=== PATIENT | female | born 1995 | race Caucasian/White ===

== ENCOUNTER 2018-04-14 06:37 | Inpatient (IN) | payer BC ==
[~2018-04-14] VITALS: Ht 160 cm; Wt 99.3 kg
[2018-04-14 06:42] VITALS: BP 124/79
[2018-04-14] MEDS ORDERED: METFORMIN HCL500 MG PO (06:46)
[2018-04-14 07:03] LABS: ABSOLUTE BASOPHILS 0.1 thou/uL (0.0-0.2); ABSOLUTE EOSINOPHILS 0.1 thou/uL (0.0-0.7); ABSOLUTE LYMPHOCYTES 1.6 thou/uL (0.8-5.3); ABSOLUTE MONOCYTES 0.6 thou/uL (0.0-1.2); ABSOLUTE NEUTROPHILS 9.4 thou/uL (1.6-8.1); BASOPHILS 1.2 %; EOSINOPHILS 0.8 %; HEMATOCRIT 39.9 % (37.0-47.0); HEMOGLOBIN 13.4 gm/dL (12.0-15.0); LYMPHOCYTES 13.5 %; MCH 28.4 pg (26.0-34.0); MCHC 33.6 g/dL (28.0-37.0); MCV 84.4 fL (80.0-100.0); MONOCYTES 5.4 %; MPV 8.2 fl. (7.2-11.1); NUCLEATED RBCS 0 /100WBC; POLYS 79.1 %; RBC 4.73 mil/uL (4.20-5.00); RDW-CV 15.3 % (10.5-14.5); WBC 11.9 thou/uL (4.0-11.0)
[2018-04-14 07:04] LABS: URINE BLOOD NEGATIVE (Negative); URINE CLARITY CLEAR; URINE COLOR DARK YELLOW; URINE GLUCOSE-RANDOM NEGATIVE (Negative); URINE KETONES TRACE (Negative); URINE NITRITE-REFLEX NEGATIVE (Negative); URINE PROTEIN TRACE (Negative)
[2018-04-14 07:08] LABS: ICTOTEST (BILI CONFIRMATORY) Positive (Negative); URINE BILIRUBIN 1+ (Negative); URINE LEUKOCYTES-REFLEX 2+ (Negative)
[2018-04-14 07:10] LABS: SQUAMOUS 4-10 Moderate /LPF (0-3); URINE WBC-REFLEX 0-5 Rare /HPF (0-5)
[2018-04-14 07:11] LABS: BACTERIA-REFLEX 1-9 Few /HPF (None Seen); CASTS None Seen /LPF (None Seen); CRYSTALS None Seen /LPF (None Seen); URINE RBC None Seen /HPF (0-2)
[2018-04-14 07:13] LABS: ALBUMIN 4.7 g/dL (3.4-5.0); ALKALINE PHOSPHATASE 85 U/L (46-116); ANION GAP 9 mmol/L (7-16); BUN 14 mg/dL (7-18); CHLORIDE 102 mmol/L (98-107); CO2 30 mmol/L (21-32); GLUCOSE 109 mg/dL (70-99); POTASSIUM 4.1 mmol/L (3.5-5.1); SGOT 163 U/L (15-37); SGPT 230 U/L (30-65); SODIUM 141 mmol/L (136-145); TOTAL BILIRUBIN 0.8 mg/dL (<0.1-1.0); TOTAL PROTEIN 7.7 g/dL (6.4-8.2)
[2018-04-14 07:16] LABS: PLATELET COUNT* 1343 thou/uL (150-400)
[2018-04-14 07:46] LABS: LIPASE > 30000 U/L (73-393)
[2018-04-14 07:59] LABS: CALCIUM 10.1 mg/dL (8.5-10.1)
[2018-04-14 08:09] LABS: PLATELET ESTIMATE INCREASED
[2018-04-14 08:11] LABS: GIANT PLATELETS FEW
[2018-04-14 08:12] LABS: ANISOCYTOSIS Occasional; LARGE PLATELETS FEW
[2018-04-14 09:35] LABS: % SATURATION 24 % (20-39); IRON 80 ug/dL (50-175)
[2018-04-14 10:35] VITALS: BP 106/64
[2018-04-14 11:11] VITALS: BP 100/68
[2018-04-14 15:00] VITALS: BP 103/62
--- NOTE | 2018-04-14 15:18 | NUR ---
PATIENT ADMITTED TO ROOM 317 VIA CART FROM ER AT 1045. PATIENT PLACED ON VEGETABLE TIER, TRACING NSR. PATIENT'S ADMISSION PROCESS COMPLETED. IV FLUIDS STARTED. PATIENT NPO. VITALS STABLE. ORIENTED TO ROOM AND ENVIRONMENT. CALL LIGHT WITHIN REACH. WILL CONTINUE WITH PLAN OF CARE.
[2018-04-14] MEDS ORDERED: ACIDOPHILUS PR1 EAC1 PO (15:57)
[2018-04-14] MEDS ORDERED: [UNRECOGNIZED DRUG - OTHER] PO (15:58)
[2018-04-14] MEDS ORDERED: ONE DAILY WOME1 EAC3 PO (15:59)
[2018-04-14] MEDS ORDERED: FISH OIL 1,0001 EAC1 PO (15:59)
[2018-04-14] MEDS ORDERED: VITAMIN D5000 UNIT PO (15:59)
--- NOTE | 2018-04-14 18:51 | NUR ---
PATIENT HAS REMAINED A/O X 4 SINCE ADMIT. 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 IV FLUIDS CONTINUE TO INFUSE. MEDICATED FOR PAIN X 2 WITH PARTIAL RELIEF. UP AD SMITA IN ROOM. REMAINS NPO. SIGNIFICANT OTHER AT BEDSIDE. GI AND HEME CONSULT PENDING. HOURLY ROUNDING COMPLETED. CALL LIGHT WITHIN REACH. WILL CONTINUE WITH PLAN OF CARE.
[2018-04-15 00:37] VITALS: BP 99/57
[2018-04-15 04:30] VITALS: BP 110/57
[2018-04-15 04:31] LABS: HEMATOCRIT 34.2 % (37.0-47.0); HEMOGLOBIN 11.6 gm/dL (12.0-15.0); MCH 28.9 pg (26.0-34.0); MCHC 33.9 g/dL (28.0-37.0); MCV 85.2 fL (80.0-100.0); MPV 7.7 fl. (7.2-11.1); RBC 4.01 mil/uL (4.20-5.00); WBC 9.1 thou/uL (4.0-11.0)
[2018-04-15 04:39] LABS: INR 1.2; PROTIME 12.7 Seconds (9.20-11.50)
[2018-04-15 04:45] LABS: ALBUMIN 3.2 g/dL (3.4-5.0); CALCIUM 7.9 mg/dL (8.5-10.1); CREATININE 0.7 mg/dL (0.6-1.3); MAGNESIUM 1.8 mg/dL (1.8-2.4); POTASSIUM 3.5 mmol/L (3.5-5.1); TOTAL BILIRUBIN 0.6 mg/dL (<0.1-1.0); TOTAL PROTEIN 5.4 g/dL (6.4-8.2)
--- NOTE | 2018-04-15 06:17 | NUR ---
PATIENT SLEPT MOST OF THE NIGHT. IV FLUIDS ARE INFUSING AT 100 ML/HR. PATIENT DID NOT REQUEST ANY PAIN OR NAUSEA MEDICINE. PATIENT REMAINS NPO PER ORDERS. WILL CONTINUE TO MONITOR.
[2018-04-15 08:00] VITALS: BP 108/56
[2018-04-15 12:37] VITALS: BP 118/70
--- NOTE | 2018-04-15 16:44 | NUR ---
SHIFT NOTE - NOTIFIED OF CCK-PIPIDA RESULT. ORDERS REC FOR LOW FAT DIET. PT UNDERSTOOD. FAMILY PRESENT AT BEDSIDE. WILL CONTINUE TO MONITOR.
[2018-04-15 16:53] VITALS: BP 107/67
[2018-04-15 22:08] LABS: IgG 635 mg/dL (700-1600)
[2018-04-16 00:24] VITALS: BP 106/60
[2018-04-16 03:33] VITALS: BP 103/64
[2018-04-16 04:16] LABS: ALBUMIN 3.5 g/dL (3.4-5.0); ALKALINE PHOSPHATASE 64 U/L (46-116); ANION GAP 9 mmol/L (7-16); BUN 7 mg/dL (7-18); CALCIUM 8.7 mg/dL (8.5-10.1); CHLORIDE 105 mmol/L (98-107); CO2 26 mmol/L (21-32); CREATININE 0.7 mg/dL (0.6-1.3); GLUCOSE 89 mg/dL (70-99); MAGNESIUM 1.9 mg/dL (1.8-2.4); POTASSIUM 3.7 mmol/L (3.5-5.1); SGOT 22 U/L (15-37); SGPT 86 U/L (30-65); SODIUM 140 mmol/L (136-145); TOTAL BILIRUBIN 0.4 mg/dL (<0.1-1.0); TOTAL PROTEIN 6.1 g/dL (6.4-8.2)
[2018-04-16 04:31] LABS: CHOLESTEROL 85 mg/dL (<200); HDL CHOLESTEROL 30 mg/dL (>40); LDL CHOLESTEROL 41 mg/dL (<100); TC:HDL 2.8 Ratio (Not establshd); TRIGLYCERIDE 73 mg/dL (<150); VLDL 15 mg/dL (<40)
[2018-04-16 04:33] LABS: SERUM ASSESSMENT Clear
--- NOTE | 2018-04-16 06:37 | NUR ---
PATIENT SLEPT WELL DURING THIS SHIFT. PT DENIES PAIN/NAUSEA. PT HAS SALINE LOCK IN RT AC. PT IS UP AD SMITA. PT DENIES NEEDS ON THIS SHIFT. FREQUENTLY USED ITEMS AND CALL LIGHT WITHIN REACH. SIDERAILS UPX2. SIGNIFICANT OTHER AT BEDSIDE. WILL CONTINUE TO MONITOR.
[2018-04-16 08:00] VITALS: BP 99/49
[2018-04-16] MEDS ORDERED: ASPIR 8181 M1 PO (08:56)
[2018-04-16 09:04] LABS: ABSOLUTE BASOPHILS 0.1 thou/uL (0.0-0.2); ABSOLUTE EOSINOPHILS 0.1 thou/uL (0.0-0.7); ABSOLUTE LYMPHOCYTES 1.4 thou/uL (0.8-5.3); ABSOLUTE MONOCYTES 0.5 thou/uL (0.0-1.2); BASOPHILS 0.7 %; HEMATOCRIT 34.5 % (37.0-47.0); HEMOGLOBIN 11.9 gm/dL (12.0-15.0); LYMPHOCYTES 17.5 %; MCH 29.6 pg (26.0-34.0); MCHC 34.4 g/dL (28.0-37.0); MCV 85.9 fL (80.0-100.0); MPV 8.4 fl. (7.2-11.1); NUCLEATED RBCS 0 /100WBC; PLATELET COUNT* 845 thou/uL (150-400); POLYS 74.8 %; RBC 4.01 mil/uL (4.20-5.00); RDW-CV 14.9 % (10.5-14.5); WBC 8.1 thou/uL (4.0-11.0)
[2018-04-16 09:09] LABS: HEPATITIS B SURFACE AG Negative (Negative)
--- NOTE | 2018-04-16 09:11 | CON ---
[address] [address] CONSULTATION Name: STUART CRUZ Room: [address]#: [id number] Admission: 04/14/18 Attend Phys: Arnel Ring MD Discharge: Date of : 95 Report #: [id number] THIS REPORT FOR: //name// CC: Sunni Ring REASON FOR CONSULTATION: Thrombocythemia. SUBJECTIVE: A 22-year-old female who has been admitted to the hospital because of epigastric pain, which was nonradiating, associated with nausea, but no vomiting, no chills. The patient denies any previous blood disorders or family history of any blood disorders. She denies any lightheadedness, headaches, numbness or tingling sensation. She denies any itching. REVIEW OF SYSTEMS: All systems were reviewed. It was negative except the above. PAST MEDICAL HISTORY: None. MEDICATIONS: Per admission list. ALLERGIES: No known allergies. SOCIAL HISTORY: No smoking, no alcohol abuse, no drug abuse. FAMILY HISTORY: Per records, breast and lung cancer. PAST SURGICAL HISTORY: None. PHYSICAL EXAMINATION: VITAL SIGNS: Today, temperature 36.8, pulse 69, respirations 16, blood pressure is 108/56, SpO2 is 98% on room air. GENERAL: The patient was lying in bed. She was not in acute distress. LUNGS: Clear to auscultations bilaterally. HEART: Regular rate and rhythm. S1, S2 within normal limits. ABDOMEN: Soft, nontender, nondistended, bowel sounds positive. EXTREMITIES: No edema, no cyanosis, no clubbing. LABORATORY DATA: WBC 9.1, hemoglobin 11.4, platelet count dropped from 1343 to 819. Creatinine is 0.7. Calcium is 7.8. Ferritin 95, TIBC is 330. AST 42, ALT 120. LDH is 529. CRP less than 2. IMAGING: CT scan of the abdomen showed marked splenomegaly, other nonspecific. By ultrasound showed normal hepatic Doppler examination. ASSESSMENT AND PLAN: A 22-year-old [place] [address] CONSULTATION Name: STUART CRUZ Room: [address] IN [facility]#: [id number] Admission: 04/14/18 Attend Phys: Arnel Ring MD Discharge: Date of : 95 Report #: [id number] of marked thrombocytosis. Her ESR, CRP came back negative, which are inflammatory markers. Her iron study is within normal range. However, she had splenomegaly on imaging. I would like to rule out any possibility of myeloproliferative disorders. We will check JAK2 mutation, MPL, BCR-ABL, also hemoglobin electrophoresis. We will obtain peripheral blood smear. She has elevation of her LDH also. We will follow up in the clinic with the results of her workup. <ELECTRONICALLY SIGNED> By: Becca Del Real MD 04/16/18 0911 [id number] paul Jhaveri
[2018-04-16 09:13] VITALS: BP 99/49
--- NOTE | 2018-04-16 10:28 | NUR ---
PATIENT TOLERATING LOW FAT DIET. OK TO DISCHARG, SPOKE WITH CONSULTANTS AND APPT MADE FOR HEMOC. IV DC'D. PATIENT AMBULATED OUT WITH SO AND NURSING STAFF. VERBALIZES UNDERSTANDING OF PAPERWORK AND SCRIPT.
[2018-04-17 15:12] LABS: HGB SOLUBILITY Negative (Negative)
[2018-04-18 18:07] LABS: ANA INTERPRETATION Negative (())
== END 2018-04-16 10:00 | disposition home or self-care (01) | DRG 445 ==
LOC: M.ERS 06:37 → M.3W 09:00 → M.TBA-ER 09:00 → M.3W 10:38
PROVIDERS: Emergency Medicine; Internal Medicine; Internal Medicine Gastroenterology; ADMIT Internal Medicine
DX: K82.8 Other specified diseases of gallbladder (principal); R65.10 Systemic inflammatory response syndrome (SIRS) of non-infectious origin without acute organ dysfunction; D47.3 Essential (hemorrhagic) thrombocythemia; K75.9 Inflammatory liver disease, unspecified; R16.1 Splenomegaly, not elsewhere classified; E28.2 Polycystic ovarian syndrome; E66.9 Obesity, unspecified; Z68.38 Body mass index [BMI] 38.0-38.9, adult; Z80.1 Family history of malignant neoplasm of trachea, bronchus and lung; Z80.3 Family history of malignant neoplasm of breast

== ENCOUNTER → 2018-04-23 | Outpatient (CLI) | payer BC ==
[~2018-04-23] MED LIST: ACIDOPHILUS PR1 EAC1 PO; ASPIR 8181 M1 PO; FISH OIL 1,0001 EAC1 PO; METFORMIN HCL500 MG PO; ONE DAILY WOME1 EAC3 PO; VITAMIN D5000 UNIT PO; [UNRECOGNIZED DRUG - OTHER] PO
--- NOTE | ~2018-04-23 | HEMONC ---
[address] [address] HEMATOLOGY ONCOLOGY NOTE Name: STUART CRUZ Room: [facility]#: [id number] Admission: 04/23/18 Attend Phys: Becca Del Real MD Discharge: Date of : 95 Report #: [id number] THIS REPORT FOR: //name// CC: Sunni Del Real DATE OF SERVICE: 04/23/2018 DIAGNOSIS: Thrombocythemia. SUBJECTIVE: A 22-year-old female who was seen in the clinic as a followup from hospital followup. She had a cholecystectomy; however, her platelet count were 1,343,000. I obtained a myeloproliferative workup, so far JAK2 mutation and BCR-ABL came back negative. MPL and calreticulin mutation is still pending. I discussed these findings with the patient. She reported that in December she had a blood work and she has a significant elevation of her platelet count. This raises the concern of a myeloproliferative disorder. I discussed obtaining a bone marrow biopsy with the patient, which she agreed to. REVIEW OF SYSTEMS: All systems were reviewed. It was negative except the above. PAST MEDICAL HISTORY, SOCIAL AND FAMILY HISTORY: Unchanged from previous visit. MEDICATIONS: Her medication list has been reviewed. PHYSICAL EXAMINATION: VITAL SIGNS: Today, blood pressure is 118/78, pulse is 97, respirations 18, saturation is 97%, temperature is 98.4. GENERAL: The patient was sitting in chair, was not in acute distress. LUNGS: Clear to auscultations bilaterally. HEART: Regular rate and rhythm. S1, S2 within normal limits. ABDOMEN: Soft, nontender, nondistended. Bowel sounds positive. EXTREMITIES: No edema, no cyanosis, no clubbing. LABORATORY DATA: On 04/16/2018, platelet count was 845, hemoglobin 11.9. ASSESSMENT AND PLAN: A 22-year-old female who is being evaluated because of significant thrombocythemia. Secondary causes like iron deficiency has been ruled out. ESR, CRP came back and within normal range. However, she had a cholecystectomy. Due to the fact that her platelet count was elevated in December, 4 months ago, I would like to obtain a bone marrow [place] [address] HEMATOLOGY ONCOLOGY NOTE Name: STUART CRUZ Room: [facility]#: [id number] Admission: 04/23/18 Attend Phys: Becca Del Real MD Discharge: Date of : 95 Report #: [id number] any possibility of essential thrombocythemia. We will follow up after her bone marrow biopsy. By: [id number] Del Real MD /nt
== END ==
LOC: M.RTH 04:12
DX: D47.3 Essential (hemorrhagic) thrombocythemia (principal); Z90.49 Acquired absence of other specified parts of digestive tract

== ENCOUNTER → 2018-04-26 | Outpatient (CLI) | payer BC ==
[~2018-04-26] VITALS: Ht 162.6 cm; Wt 101.7 kg
[2018-04-26 09:23] VITALS: BP 136/76
[2018-04-26 09:27] LABS: HEMATOCRIT 38.1 % (37.0-47.0); HEMOGLOBIN 12.7 gm/dL (12.0-15.0); MCH 28.8 pg (26.0-34.0); MCHC 33.3 g/dL (28.0-37.0); MCV 86.3 fL (80.0-100.0); MPV 7.9 fl. (7.2-11.1); NUCLEATED RBCS 0 /100WBC; RBC 4.42 mil/uL (4.20-5.00); RDW-CV 15.6 % (10.5-14.5); WBC 11.2 thou/uL (4.0-11.0)
[2018-04-26 09:34] LABS: CREATININE 0.8 mg/dL (0.6-1.3); POTASSIUM 4.6 mmol/L (3.5-5.1)
[2018-04-26 09:37] LABS: PLATELET COUNT* 1314 thou/uL (150-400)
[2018-04-26 09:38] LABS: ALBUMIN 4.1 g/dL (3.4-5.0); TOTAL BILIRUBIN 0.2 mg/dL (<0.1-1.0); TOTAL PROTEIN 7.3 g/dL (6.4-8.2)
[2018-04-26 09:46] LABS: APTT 30.8 Seconds (25.0-31.3); CALCIUM 9.4 mg/dL (8.5-10.1); INR 1.1; PROTIME 11.4 Seconds (9.20-11.50)
[2018-04-26 10:08] LABS: ABSOLUTE BASOPHILS 0.2 thou/uL (0.0-0.2); ABSOLUTE EOSINOPHILS 0.2 thou/uL (0.0-0.7); ABSOLUTE LYMPHOCYTES 1.8 thou/uL (0.8-5.3); ATYPICAL LYMPHS 3 %; METAMYELOCYTES 2 %; PLATELET ESTIMATE INCREASED
[2018-04-26 11:41] VITALS: BP 111/68
[2018-04-26 11:50] VITALS: BP 117/73
[2018-04-26 12:38] VITALS: BP 113/72
--- NOTE | 2018-05-08 12:05 | PATH ---
[address] [address] PATHOLOGY RPT PROCEDURE Name: LEXI PAUL [id number] Admission: 04/26/18 Date of : [birth year] Discharge: Report #: [id number] Path Case #: [id number] LCA Accession Number: [id number] . 01 Material submitted: . PART A: BM BX PART B: BM CLOT PART C: BM ASP PART D: PERIPHERAL SMEAR PART E: BM FLOW . 01 Clinician provided ICD-10: D47.3 . 01 Clinical history: . 22 year woman with thrombocythemia. . 02 Diagnosis: Bone marrow aspirate, biopsy, cell clot and peripheral blood: - Peripheral blood with mild leukocytosis/neutrophilia with mild left shift and marked thrombocytosis. - HYPERCELLULAR BONE MARROW WITH INCREASED, ATYPICAL AND CLUSTERED MEGAKARYOCYTES HIGHLY SUGGESTIVE OF A MYELOPROLIFERATIVE NEOPLASM. (SEE COMMENT) - No stainable iron. (CLW/db; 05/01/2018) . . . . . Special studies report received from [facility], [address] [place] [address], [address], [place], [address], on case [id number], labeled with their number [id number], dated 05/01/2018. . JAK2 V617F Mutation Analysis by Multiplex PCR . INTERPRETATION: The Qualitative Real-Time PCR assay is negative for V617F JAK2 mutation . Indication for Study: Thrombocythemia . Specimen Type: Bone Marrow . Comments: The Qualitative Real-Time PCR assay detects V617F mutation (1849G>T) observed in approximately 95% polycythemia vera (PV), 55% essential thrombocythemia (ET) and 55% primary myelofibrosis (PMF). It is also infrequently present (3-5%) in myelodysplastic syndrome, [place] [address] PATHOLOGY RPT PROCEDURE Name: LEXI PAUL Room: [facility]#: [id number] Admission: 04/26/18 Date of : 95 Discharge: Report #: [id number] Path Case #: [id number] myelomonocytic leukemia, and other atypical chronic myeloid disorders. The results should be interpreted in the context of all clinical and laboratory findings. No therapeutic action should be taken based solely on these results. This assay detects only the JAK2 V617F point mutation. Other mutations that may occur in the JAK2 gene will not be detected. . See Flow Cytometry report [id number] for further information. See Cytogenetic report [id number] for further information. . Analytical Results: . Assay Type Detection Parameters Result JAK2 Mutation Analysis V617F Mutation Not Detected . . at [facility] [employer]. Cullen Wilson, Ph.D., ZAHEER DABMG, DABCC, DLMcm, M(ASCP)cm, OLIVIA(ASC)cm . . . Methodology: Total genomic DNA was extracted and subjected to TaqMan real-time amplification/detection. Two amplification products per sample were monitored by real-time PCR using primers/probes specific for JAK2 wild type (WT) and JAK2 mutant. The [employer] Quantitation software will compare the patient specimen values to the standard curves and generate percent values for wild type and mutant type. The numerical values of sample Mutant Quantity/(Sample Mutant Quantity + Sample Wild Type Quantity) X 100 is calculated as a percentage. In vitro studies have indicated that this assay has an analytical sensitivity of 1%. . References: Bud, N.C.P.: Genetic and epigenetic complexity in myeloproliferative neoplasms. Hematology Am Soc Hematol Educ Program 2011;2011:208-214. . Arik EJ, Jude LM, Parrish PJ, et al: Acquired mutation of the tyrosine kinase JAK2 in human myeloproliferative disorders. Lancet 2005 June 15;365(5652):1451-5831. . Arnel C, Dani V, Gillian Barrios BOWEN, et al: A unique clonal JAK2 mutation leading to constitutive signaling causes polycythaemia vera. Nature 2004July 28;042(6035):5637-1187. . Alcira R, Talat F, Fely , et al: A javh-lk-ztdywhgf mutation of JAK2 in myeloproliferative disorders. N Engl J Med 2005;352:1736-4448 . [place] [address] PATHOLOGY RPT PROCEDURE Name: LEXI PAUL [id number] Admission: 04/26/18 Date of : [birth year] Discharge: Report #: [id number] Path Case #: [id number] This Test was performed by [facility] [employer]. at [address], [facility] [address], [place], [address]. . [employer] is a business unit of [employer] [employer] a wholly-owned subsidiary of [employer]. . . This test was developed and its performance characteristics determined by [facility] [employer]. It has not been cleared or approved by the Food and Drug Administration. . A complete copy of the report is on file. . Professional services performed by [employer]. at [address], [place] [address]. Technical services performed by [employer]. at [address], [place] [address]. . (AMJ 05/01/2018) . AZJ/05/01/2018 . 02 Comment: Overall the bone marrow is hypercellular for the patient's age with trilineage hematopoiesis and increased, atypical and clustered megakaryocytes. This is histologically compatible with/suggestive of a myeloproliferative neoplasm. There is 2-3/4+ (moderate) reticulin fibrosis. JAK2 mutation was not detected. Correlation with clinical history, additional laboratory data and cytogenetics is required. (CLW/db; 05/01/2018) . 02 Addendum: . Special studies report received from [employer], [address] [place] [address], [address], [place], [address], on case [id number], labeled with their number [id number], dated 05/02/2018. . Calreticulin Mutation Detection by PCR Analysis . INTERPRETATION: Positive: a deletion mutation was detected within the analyzed region of the calreticulin (CALR) gene Please see additional comment. . Indication for Study: Thrombocythemia . Specimen Type: [place] [address] PATHOLOGY RPT PROCEDURE Name: LEXI PAUL Room: [facility]#: [id number] Admission: 04/26/18 Date of : 95 Discharge: Report #: [id number] Path Case #: [id number] Comments: A positive result indicates the presence of a clonal population carrying CALR gene mutations. Results should be interpreted in conjunction with clinical and laboratory findings for the most accurate interpretation. . The calcium-binding endoplasmic reticulin cigar head piercer protein, calreticulin (CALR), is somatically mutated in approximately 70% of patients with JAK2-negative essential thrombocythemia (ET) and 60-88% of patients with JAK2-negative primary myelofibrosis. Only a minority of patients (approximately 8%) with myelodysplasia have mutations in CALR gene. CALR mutations are rarely detected in patients with de caridad acute myeloid leukemia, chronic myelogenous leukemia, lymphoid leukemia, or solid tumors. CALR mutations are not detected in polycythemia and appear to be mutually exclusive with JAK2 mutations and MPL mutations. . The majority of mutational changes involve a variety of insertion or deletion mutations in exon 9 of the calreticulin gene: approximately 53% of all CALR mutations are a 52 bp deletion while the second most prevalent mutation (approximately 32%) contains a 5 bp insertion. The remaining mutations consist of mostly deletions ranging from 1 to 52 bp, and 1 or 2 insertion mutations. . Additional comment: A deletion mutation of approximately 52 bp was detected within the analyzed region of the calreticulin (CALR) gene. This most likely represents the type-1 mutation (52bp deletion (p.L367fs*46)). . See Flow Cytometry report [id number] for further information. See Cytogenetic report [id number] for further information. See Molecular report [id number] for further information. . Analytical Results: Assay Type Detection Parameters Result CALR Gene Mutation Exon 9 Deletion Detected . at [employer]. Cullen Wilson, Ph.D., ZAHEER DABMG, DABCC, DLMcm, M(ASCP)cm, OLIVIA(ASCP)cm . Methodology: Genomic DNA was isolated from the provided specimen. Polymerase chain reaction (PCR) of exon 9 of the CALR gene was performed with specific fluorescent-labeled primers, and the PCR product was analyzed by capillary gel electrophoresis to determine the size of the PCR products. This PCR assay is capable of detecting a mutant cell population with a sensitivity of 5 mutant cells per 100 normal cells. . Intended Use: [place] [address] PATHOLOGY RPT PROCEDURE Name: LEXI PAUL Room: [facility] JAIRO Craig#: [id number] Admission: 04/26/18 Date of : 95 Discharge: Report #: [id number] Path Case #: [id number] The detection of a CALR gene mutation aids in the specific diagnosis of a myeloproliferative neoplasm, and helps distinguish this clonal disease from a benign reactive process. The presence of a CALR gene mutation may predict a more indolent disease course with a lower thrombotic risk and longer overall survival (relative to those with a JAK2 mutation). . References: Sobeida Redman et al. (2013) Somatic mutations of calreticulin in myeloproliferative neoplasms. New Engl. J. Med. 369:9890-2084 . Jaspal Costa et al. (2013) Somatic CALR mutations in myeloproliferative neoplasms with nonmutated JAK2. New Engl. J. Med. (2013) 369:5196-3193 . Disclaimer This Test was performed by [facility] [employer]. at [address], [facility] [address], [place], [address]. [employer] is a business unit of [employer] [employer] a wholly-owned subsidiary of [employer]. . This test was developed and its performance characteristics determined by [employer] It has not been cleared or approved by the Food and Drug Administration. . A complete copy of the report is on file. . Professional services performed by [employer]. at [address], [place] [address]. Technical services performed by [employer]. at [address], [place] [address]. . (AMJ 05/03/2018) . AZJ/05/03/2018 Addendum Electronically Signed by Julia Griffiths MD, Pathologist Addendum #2: Special studies report received from [employer], [facility] [address]. [address] [place] [address], [address], [place], [address], on case [id number], labeled with their number [id number], dated 05/07/2018. . Cytogenetic Analysis Report . RESULT: Normal Female Karyotype 46,XX(20) . Specimen Type: Bone Marrow . Indication for Study: [place] [address] PATHOLOGY RPT PROCEDURE Name: ANTHONYLEXI ANGELA Room: [facility]#: [id number] Admission: 04/26/18 Date of : 95 Discharge: Report #: [id number] Path Case #: [id number] INTERPRETATION: Cytogenetic analysis revealed no evidence of an acquired clonal abnormality. These findings should be interpreted in the context of clinical and histopathologic findings. . See Flow Cytometry report [id number] for further information. See report [id number] for further information. See Molecular report [id number] for further information. . Number of Metaphases Counted: 20 Banding: G-banding Number of Metaphase Cells Analyzed: 20 Band Level: 400 Number of Metaphase Cells Karyotyped: 2 Cultures Established: 24/48 hour unstimulated . at [facility] [employer]. Raymond Ardon, PhD, [facility] Senior Monitoring Coordinator, Clinical Cytogenetics . Disclaimer This Test was performed by [employer]. at [address] [place] [address], [place], [address]. [facility] is a business unit of [employer] [employer] a wholly-owned subsidiary of [employer]. . . Any image(s) that accompany this report is/are a solar sales representative and assessor image(s) only and should not be used to render a diagnosis. . Based on the resolution of this study, standard cytogenetic methodology does not routinely detect subtle or sub-microscopic rearrangements or low level mosaicism. . A complete copy of the report is on file. . Professional services performed by [employer]. at [address] [place] [address], [place] [address], [place] [address]. Technical services performed by [employer]. at [address] [place] [address], [place] [address]. . (AMJ 05/08/2018) AZJ/05/08/2018 Addendum Electronically Signed by Julia Griffiths MD, Pathologist . 02 Electronically signed: . Julia Griffiths MD, Pathologist NPI- [id number] . [address] [place] [address] PATHOLOGY RPT PROCEDURE Name: LEXI PAUL Room: [facility] Rafa#: [id number] Admission: 04/26/18 Date of : 95 Discharge: Report #: [id number] Path Case #: [id number] Gross description: . A. Received in formalin labeled "Lexi Paul core," is a single needle core of granular, dark yellow-brown bone with attached blood clot measuring 1.1 cm in length by 0.3 cm in diameter. The specimen is submitted in cassette A1, following light decalcification. . B. Received in formalin labeled "Lexi Paul clot," is a 2.8 x 2.3 x 0.5 cm aggregate of dark brown blood clot. The specimen is submitted entirely in cassette B1. (DAC; 04/29/2018) XDC/XDC . 02 Microscopic: . CBC Data (04/26/18): WBC 11,200 /uL, RBC 4.42, hemoglobin 12.7 g/dL, hematocrit 38.1%, MCV 86.3 fL, MCH 28.8 pg, MCHC 33.3 g/dL, RDW 15.6%, and platelet count 1,314,000 per uL. White blood cell differential: segs 77%, bands 1%, lymphs 13%, eos 2%, basos 2%, metas 2% and atypical lymphs 3%. . Peripheral Blood Smear: Cytomorphological examination of the Knox's stained peripheral blood smear confirms the provided data. Red blood cells are normocytic and are without significant anisopoikilocytosis. A rare dacryocyte is noted. White blood cells are mildly increased in number. They are predominantly segmented neutrophils and are without significant dyspoiesis. There is a mild left shift with rare metamyelocytes noted on scanning. No blasts or James rods are seen. Lymphocytes are predominantly small, round, and mature appearing with condensed chromatin and scant cytoplasm with admixed large granular lymphocytes. Scattered monocytes are mature. Platelets are markedly increased in number and mainly normal in morphology with rare larger platelets noted. . Aspirate Smears: Cytomorphological examination of the Knox's stained aspirate smears shows no intact spicules present. Scattered hematopoietic progenitor cells and rare megakaryocytes are noted; therefore, this most likely represents a mildly hemodilute sample. The myeloid to erythroid ratio is 2:1. Full myeloid maturation is identified and is without significant dyspoiesis. Erythroid maturation is mildly dyserythropoietic with irregular nuclear contours and nuclear cytoplasmic dyssynchrony. In a 500 cell differential, there are 1% blasts (no James rods are seen), 55% more differentiated myeloids, 25% erythroid precursors, 18% lymphocytes and 1% plasma cells. Rare scattered megakaryocytes are both normal and abnormal in morphology with nuclear abnormalities. No lymphoid aggregates or markedly atypical lymphoid cells are seen. Plasma cells are without atypia. Iron stain of the aspirate smear shows 0/4+ iron positivity. It is predominantly blood and peripheral blood elements with no intact spicules present. No ringed sideroblasts are [place] [address] PATHOLOGY RPT PROCEDURE Name: LEXI PAUL Room: [facility]#: [id number] Admission: 04/26/18 Date of : 95 Discharge: Report #: [id number] Path Case #: [id number] Core Biopsy and Cell Clot: The decalcified bone marrow core biopsy is adequate. The bone marrow is hypercellular with an overall cellularity approaching 95-100%. The myeloid to erythroid ratio is 1-2:1. Myeloid and erythroid maturation are mildly dyspoietic. Megakaryocytes are increased in number, atypical in morphology and clustered. Amorphous pink (likely fibrin) debris is present. A rare interstitial lymphoid aggregate composed of small lymphocytes is noted. No markedly atypical lymphocytes are seen. Bony trabeculae and blood vessels are unremarkable. The cell clot is predominantly blood and peripheral blood elements with scattered fibrin thrombi. No intact spicules are present. . Properly controlled special stains are performed. . Block A1 Iron - 0/4+ iron positivity Reticulin - 2-3/4+ (moderate) reticulin fibrosis Congo red - Negative for amyloid . Block B1 Iron - 0/4+ iron positivity, predominantly blood and peripheral blood elements with no intact spicules present . Due to the hemodilute nature of the aspirate and to identify cells in a tissue architectural context, properly controlled immunohistochemical stains are performed. . Block A1 CD34 - No increased or abnormally localized blasts CD117 - No increased or abnormally localized blasts MPO - Confirms the M:E ratio Glycophorin A - Confirms the M:E ratio CD138 - Stains less than 5% scattered plasma cells [place] and lambda in situ hybridization - Plasma cells are polytypic . Flow Cytometry: . Flow cytometric immunophenotypic analysis was performed at [facility]. The diagnosis is "no evidence for abnormal myeloid maturation or an increased blast population. No evidence for a B-cell or T-cell lymphoproliferative disorder." There are 10% lymphocytes. Of the lymphocytes, there are 0.7% polyclonal B-cells. T-cells have a CD4/CD8 ratio of 3.1 and no aberrant T-cell antigen expression. There are 0.3% myeloid blasts. Myeloproliferative and myelodysplastic disorders cannot be categorically excluded by flow cytometric analysis. Please see separate flow cytometry report from [facility] ([id number]). . Cytogenetics: Cytogenetic chromosomal [place] [address] PATHOLOGY RPT PROCEDURE Name: LEXI PAUL Room: [facility] JAIRO Craig#: [id number] Admission: 04/26/18 Date of : 95 Discharge: Report #: [id number] Path Case #: [id number] ([id number]). . JAK2 analysis is performed at [facility]. JAK2 mutation was not detected. Please see separate molecular analysis report from [facility] ([id number]). . (CLW/db; 05/01/2018) . . . . . Special studies report received from [facility], [address] [place] [address], [address], [place], [address], on case [id number], labeled with their number [id number], dated 04/27/2018. . Flow Cytometry: Hematologic Neoplasia Assessment . Clinical History Thrombocythemia . Indication for Study Evaluation for hematolymphoid neoplasia . Specimen Bone Marrow Aspirate . Viability 90% (7AAD exclusion) . Interpretation Bone Marrow Aspirate: - No evidence for abnormal myeloid maturation or an increased blast population. - No evidence for a B-cell or T-cell lymphoproliferative disorder. . . Comments Myeloproliferative and myelodysplastic disorders cannot be categorically excluded by flow cytometric analysis. Correlation with results of morphologic studies and cytogenetic/ molecular analysis is recommended for a complete evaluation. . Populations Analyzed Myeloid Blasts: 0.3% No significant immunophenotypic abnormalities Lymphocytes: 10% B-cells: 0.7%, polytypic/polyclonal sIg light chain pattern T-cells: no significant abnormalities of [place] [address] PATHOLOGY RPT PROCEDURE Name: LEXI PAUL Room: [facility] [id number] Admission: 04/26/18 Date of : 95 Discharge: Report #: [id number] Path Case #: [id number] CD4+ T-cells: 5.8% (including 0.1% CD57+ cells) CD8+ T-cells: 1.9% (including 0.3% CD57+ cells) CD4:CD8: 3.1 NK cells: 1.0% Neutrophilic Cells: 84% No abnormal myeloid maturation or increase in NS27-twwjeyao blasts is seen. There is upregulation of CD10, CD11b and CD16 expression by myeloid cells which is consistent with hemodilution effect and/or right shift in myeloid maturation. Monocytic Cells: 3% No significant abnormalities of the markers tested Eosinophils: 1% No relative increase Basophils: 0.8% No relative increase CD45 Negative 0.9% No significant reactivity with the markers Events/Debris: tested (may represent unlysed red blood cells, erythroid precursors, platelets, debris, etc.) (erythroid precursors may be underrepresented due to sample lysis/processing) . Morphologic Evaluation A slide was reviewed for rn quality purposes only. . Specimen Description Total Cell Yield: 11.14 x 10 and 6 . Reagent(s) Used CD2, CD3, CD4, CD5, CD7, CD8, CD10, CD11b, CD13, CD14, CD16, CD19, CD20, CD33, CD34, CD38, CD45, CD56, CD57, CD64, CD117, HLA-DR, kappa, lambda . at [employer]. Yumiko Cali MD Hematopathologist . Intended Use Flow cytometry is optimally used to immunophenotypically characterize abnormal populations when they are detected. Negative flow cytometry results do not exclude lymphoma or neoplasia. Possible false negative flow cytometry results may occur in, but are not limited to, the following: neoplastic cells in Hodgkin lymphoma are not typically adequately represented by routine clinical flow cytometry; neoplastic cells may be lost or inadequately represented due to degeneration, sample processing, sampling artifact, or patchy involvement; plasma cells are typically underrepresented by flow cytometry; immature cells/blasts may be underrepresented due to hemodilution; myeloproliferative disorders and low grade myelodysplasia may not have immunophenotypic abnormalities or increased blasts. Correlation with all available clinical, laboratory, and morphologic data is always necessary to assess [place] [address] PATHOLOGY RPT PROCEDURE Name: LEXI PAUL Room: [facility].#: [id number] Admission: 04/26/18 Date of : 95 Discharge: Report #: [id number] Path Case #: [id number] false negative flow cytometry results and to establish a diagnosis. Each marker in this analysis was used to assess for potential antigenic abnormalities or to evaluate detected abnormalities. . Disclaimer(s) This test was performed at [facility] [employer]. at [address], [address] - Medical Underwriter: Ruel Pires MD. [employer] is a business unit of [employer] [employer] a wholly-owned subsidiary of [employer]. . Any image or images that accompany this report are solar sales representative and assessor images only and should not be used to render a diagnosis. . This test was developed and its performance characteristics determined by [employer]. It has not been cleared or approved by the Food and Drug Administration (FDA). The FDA has determined that such clearance or approval is not necessary. . For inquiries, the physician may contact Lab: [phone] . A complete copy of the report is on file. . Professional services performed by [employer]. at [address], [place] [address]. Technical services performed by [employer], [employer]. at [address], [place] [address]. . (AMJ 04/29/2018) . . 02 Pathologist provided ICD-10: D72.829, D69.6, D75.89 . 02 CPT . 888882, 914166, 345445, 693508, 910574, 422327, 237295, 311031, 105162, U18520, E00458, H61330, W12711, 789215 Specimen Comment: A courtesy copy of this report has been sent to Specimen Comment: [phone]. Specimen Comment: Report sent to / DR WALTERS Specimen Comment: A duplicate report has been generated due to demographic updates. Performed at: [address], [place] [id number] MD Agapito Arboleda MD Phone: [phone] Performed at: 02 [place] [address] PATHOLOGY RPT PROCEDURE Name: LEXI PAUL [facility] [id number] Admission: 04/26/18 Date of : [birth year] Discharge: Report #: [id number] Path Case #: [id number] [address], [place] [id number] MD Matthieu Espinal MD Phone: [phone]
== END | disposition home or self-care (01) ==
LOC: M.INT 08:43
PROVIDERS: Radiology Diagnostic Radiology
DX: D69.6 Thrombocytopenia, unspecified (principal); D72.829 Elevated white blood cell count, unspecified; D75.89 Other specified diseases of blood and blood-forming organs; Z79.82 Long term (current) use of aspirin; Z79.899 Other long term (current) drug therapy

== ENCOUNTER → 2018-05-14 | Outpatient (CLI) | payer BC ==
--- NOTE | ~2018-05-14 | HEMONC ---
[address] [address] HEMATOLOGY ONCOLOGY NOTE Name: STUART CRUZ Room: [facility]#: [id number] Admission: 05/14/18 Attend Phys: Becca Del Real MD Discharge: Date of : 89 Report #: [id number] THIS REPORT FOR: //name// CC: Sunni Del Real DATE OF SERVICE: 05/14/2018 DIAGNOSIS: Essential thrombocythemia. 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 The patient had calreticulin mutation positive, JAK2 mutation is negative. BCR-ABL also came back negative, MPL was still not available. The patient had a CBC done with her primary care physician on 05/10/2018, which showed that her platelet count is 1,000,187. She continues to be asymptomatic at this point. REVIEW OF SYSTEMS: All systems were reviewed. It was negative except the above. PAST MEDICAL, SOCIAL AND FAMILY HISTORY: As mentioned above. PHYSICAL EXAMINATION: VITAL SIGNS: Today, blood pressure is 112/76, pulse is 83, respirations 18, sat is 97% on room air, temperature is 97.2. GENERAL: The patient was sitting in chair, was not in acute distress. LUNGS: Clear to auscultation bilaterally. HEART: Regular rate and rhythm. S1, S2 within normal limits. ABDOMEN: Soft, nontender, nondistended, bowel sounds positive. ASSESSMENT AND PLAN: A 22-year-old female who has been evaluated because of thrombocythemia. Her bone marrow biopsy showed changes consistent with essential thrombocythemia. She had calreticulin mutation positive. In terms of her treatment, 1. Definitely, I recommend to continue her on aspirin for now; however, in terms of cytoreductive therapy, the patient has polycystic ovaries and she is not taking any kind of contraceptive and she might be . Her platelet count has been on Sunday close to 1,000,187 thousands. In terms of treatment for cytoreductive therapy, Hydrea has been teratogenic and not recommended. Other alternative is interferon alpha, [place] [address] HEMATOLOGY ONCOLOGY NOTE Name: STUART CRUZ Room: [facility]#: [id number] Admission: 05/14/18 Attend Phys: Becca Del Real MD Discharge: Date of : 89 Report #: [id number] choice during . I would like to review the literature for any other alternatives. We will obtain a test today. Follow up in 4 weeks. By: [id number] Del Real MD /nt
[2018-05-14 11:53] LABS: ABSOLUTE BASOPHILS 0.1 thou/uL (0.0-0.2); ABSOLUTE EOSINOPHILS 0.2 thou/uL (0.0-0.7); ABSOLUTE LYMPHOCYTES 1.7 thou/uL (0.8-5.3); ABSOLUTE MONOCYTES 0.3 thou/uL (0.0-1.2); ABSOLUTE NEUTROPHILS 5.9 thou/uL (1.6-8.1); BASOPHILS 0.8 %; EOSINOPHILS 2.3 %; HEMATOCRIT 36.5 % (37.0-47.0); HEMOGLOBIN 12.5 gm/dL (12.0-15.0); LYMPHOCYTES 20.2 %; MCH 29.3 pg (26.0-34.0); MCHC 34.2 g/dL (28.0-37.0); MCV 85.7 fL (80.0-100.0); MONOCYTES 4.2 %; MPV 7.7 fl. (7.2-11.1); NUCLEATED RBCS 0 /100WBC; POLYS 72.5 %; RBC 4.26 mil/uL (4.20-5.00); RDW-CV 15.4 % (10.5-14.5); WBC 8.2 thou/uL (4.0-11.0)
[2018-05-14 12:02] LABS: PLATELET COUNT* 1178 thou/uL (150-400)
== END ==
LOC: M.RTH 04:01
PROVIDERS: Internal Medicine
DX: D47.3 Essential (hemorrhagic) thrombocythemia (principal)

== ENCOUNTER → 2018-06-21 | Outpatient (CLI) | payer BC ==
[2018-06-21 13:04] LABS: ABSOLUTE BASOPHILS 0.1 thou/uL (0.0-0.2); ABSOLUTE EOSINOPHILS 0.1 thou/uL (0.0-0.7); ABSOLUTE LYMPHOCYTES 1.8 thou/uL (0.8-5.3); ABSOLUTE MONOCYTES 0.4 thou/uL (0.0-1.2); ABSOLUTE NEUTROPHILS 5.3 thou/uL (1.6-8.1); BASOPHILS 1.1 %; EOSINOPHILS 1.2 %; HEMATOCRIT 36.4 % (37.0-47.0); HEMOGLOBIN 12.4 gm/dL (12.0-15.0); LYMPHOCYTES 23.5 %; MCH 28.8 pg (26.0-34.0); MCHC 34.1 g/dL (28.0-37.0); MCV 84.3 fL (80.0-100.0); MONOCYTES 4.8 %; MPV 7.7 fl. (7.2-11.1); NUCLEATED RBCS 0 /100WBC; POLYS 69.4 %; RBC 4.32 mil/uL (4.20-5.00); RDW-CV 14.8 % (10.5-14.5); WBC 7.6 thou/uL (4.0-11.0)
[2018-06-21 13:18] LABS: PLATELET COUNT* 1126 thou/uL (150-400)
== END ==
LOC: M.LAB 12:00
PROVIDERS: Internal Medicine
DX: D47.3 Essential (hemorrhagic) thrombocythemia (principal)

== ENCOUNTER 2019-10-31 15:55 | Emergency (ER) | payer OTHER ==
[~2019-10-31] VITALS: Ht 160 cm; Wt 90.7 kg
[2019-10-31] MEDS ORDERED: DOXYCYCLINE 10100 M2 PO (17:17)
[2019-10-31 17:32] VITALS: BP 128/78
== END 2019-10-31 17:33 | disposition home or self-care (01) ==
LOC: M.ERS 15:55
DX: L01.00 Impetigo, unspecified (principal); E28.2 Polycystic ovarian syndrome; E66.9 Obesity, unspecified; Z68.35 Body mass index [BMI] 35.0-35.9, adult; Z90.49 Acquired absence of other specified parts of digestive tract